=== PATIENT | male | born 1955 | race Caucasian/White ===

== ENCOUNTER 2017-06-22 18:18 | Inpatient (IN) ==
[2017-06-22] MEDS: SALINE FLUSH 10ml SYRINGE IVF PRN ×2 (19:22→23:05)
--- NOTE | 2017-06-22 19:22 | Emergency Department Report ---
Skin/Abscess/FB HPI - General Chief complaint: Skin/Abscess/Foreign Body <Zuly Messer Josette Padilla 06/22/17 19: 32> Stated complaint: rash all over,swollen hands,swollen eyes <Zuly Messer Randy 06/22/17 19:32> Time Seen by Provider: 06/22/17 18:21 <AydeZulyxiomara Padilla 06/22/17 19:32> Source: patient, family <PorfiriobookerjoeJessicaZulyxiomara Padilla 06/22/17 19:32> Mode of arrival: ambulatory <AydeZulyxiomara Padilla 06/22/17 19:32> Limitations: no limitations <PorfirioadalbertoZulyxiomara Padilla 06/22/17 19:32> - History of Present Illness HPI narrative: Pt presents with redness and swelling to chest, neck, head, back, and extremities. He reports a history of psoriasis for which he has been using a steroid cream for quite some time, when he noticed the initial redness to his chest and back in addition to his upper extremities he saw his PCP who started him on a 14 day course of Lamisil and prn Vistaril 10 days ago. He did not take his Vistaril today as it makes him tired but has been taking his Lamisil regularly. Tonight when his came home she noted increased swelling to his extremities and face, as well as color changes to his lower extremities to a more intense red and purple, she notified PCP who instructed pt to come to the ER <AydeZulyxiomara Padilla 06/22/17 19:32> MD complaint: rash, lesion, discoloration, other (psoriassis) <Ayde Zulyxiomara Padilla 06/22/17 19:32> Onset (ago): week(s) <AydeZulyxiomara Padilla 06/22/17 19:32> Location: head, chest, back, LUE, RUE, L hand, R hand, LLE, RLE, L foot, R foot <Zuly Messer 06/22/17 19:32> Severity: severe <Zuly Messer 06/22/17 19:32> Consistency: constant <Zuly Messer 06/22/17 19:32> Relieving factors: none <Zuly Messer 06/22/17 19:32> Exacerbating factors: none <Zuly Messer 06/22/17 19:32> Associated symptoms: itching (pt denies difficulty swallowing, SOA) < Zuly Messer 06/22/17 19:32> Treatments prior to arrival: corticosteroid, other (antifungal, Vistaril) < Zuly Messer 06/22/17 19:32> - Related Data Home Medications Medication Instructions Recorded Confirmed Acetaminophen 650 mg PO Q4-6HR PRN 06/22/17 06/22/17 Albuterol Sulfate [Proventil Hfa 1 puff INH Q4H PRN 06/22/17 06/22/17 90mcg] Budesonide/Formoterol Fumarate 2 puff INH BID 06/22/17 06/22/17 [Symbicort 160-4.5 Mcg Inhaler] Furosemide [Lasix] 20 mg PO DAILY 06/22/17 06/22/17 Multivitamin [One Daily] 1 each PO DAILY 06/22/17 06/22/17 Terbinafine Tab [LamISIL] 250 mg PO DAILY 06/22/17 06/22/17 Vitamin B Complex [Balanced B-100] 1 each PO DAILY 06/22/17 06/22/17 hydrOXYzine pamoate [Vistaril] 1 cap PO HS 06/22/17 06/22/17 <Zuly Messer 06/22/17 19:32> Allergies Allergy/AdvReac Type Severity Reaction Status Date / Time No Known Drug Allergies Allergy Unknown Verified 06/22/17 18:43 <Zuly Messer 06/22/17 19:32> Review of Systems All systems: reviewed and negative except as stated <Zuly Messer 11/03 19:32> Constitutional: Denies: fever, chills <Zuly Messer 06/22/17 19:32> ENT: Denies: ear pain, throat pain <Zuly Messer 06/22/17 19:32> Cardiovascular: Reports: edema. Denies: chest pain, dyspnea on exertion < Zuly Messer 06/22/17 19:32> Respiratory: Denies: cough, dyspnea <Zuly Messer 06/22/17 19:32> Gastrointestinal: Denies: abdominal pain, nausea, vomiting, diarrhea < Zuly Messer 06/22/17 19:32> Musculoskeletal: Reports: joint swelling, arthralgia, myalgia <Zuly Messer 06/22/17 19:32> Integumentary: Reports: change in hair, change in nails, change in pigmentation , changing lesions, erythema, lesions, pruritus, rash, swelling, wounds < Zuly Messer 06/22/17 19:32> Neurological: Denies: headache <AydeZuly Padilla 06/22/17 19:32> Psychiatric: Denies: anxiety, depression <AydeZuly Padilla 06/22/17 19:32> Endocrine: Denies: fatigue <AydeZuly Padilla 06/22/17 19:32> [facility] Patient Stated Medical History Chronic Obstructive Pulmonary Yes Disease (COPD) Other Yes: psoriasis <AydeZuly Padilla 06/22/17 19:32> - Social History Smoking status: Unknown if ever smoked <Zuly Messer 06/22/17 19:32> Physical Exam - Limitations Limitations: no limitations <Zuly Messer 06/22/17 19:32> - General General appearance: alert, in distress <Zuly Messer 06/22/17 19:32> - Normal Exams: Head:: Normocephalic without trauma (swelling to scalp) <MariejoeZuly Josette Padilla 06/22/17 19:32> Eyes:: Pupils are PERRLA w/ EOMI <AydeZuly Padilla 06/22/17 19:32> Neck:: Full range of motion, without adenopathy <MariejoeZuly Padilla 19:32> Chest/Respirations:: Clear all garrido, with good airflow, and symmetry bilaterally <AydeZuly Padilla 06/22/17 19:32> Cardiovascular:: Regular rate and rhythm, without murmur or gallop, Pulses 2+ all extremities <PorfiriobookerjoeZuly Josette Randy 06/22/17 19:32> Abdomen:: Bowel sounds positive, soft, non-tender, non-distended <Zuly Messer 06/22/17 19:32> Musculoskeletal:: No tenderness, or deformity noted, good range of motion, all extremities <Zuly Messer 06/22/17 19:32> Neurological:: Patient is alert, and oriented, cranial nerves, motor/sensory/ cerebellar, exams w/o gross deficits, to observation <Zuly Messer 11/03 19:32> Psychiatric:: Patient exhibits, appropriate attention, emotion and affect < Zuly Messer 06/22/17 19:32> - Expanded Skin Exam Type of lesion: Present: rash <Zuly Messer 06/22/17 19:32> Distribution: generalized, head, neck, thorax, chest, back, LUE, LLE, RUE, RLE <[facility] Facility[facility] glover 06/22/17 19:32> Description: Present: erythematous, swelling, macular, vesicular, confluent, urticarial <Zuly Messer 06/22/17 19:32> Course - Consultations Consultation #1: Dr. Ledezma ([facility]): So long as pt does not have Crescencio's Donis or TEN-like sx, can treat as normal. Pts are treated very similarly to burn patients. Treatment should consist of cyclosporin 100mg bid, triamcinolone 0.1mg ointment bid, vaseline for pruritus, and hydroxyzine or benadryl for pruritus. May consider adding systemic steroids, though this can cause worsening of his underlying psoriasis later (or cause a pustular psoriasis). Culture any skin sites that appear impetiginous, since staph/strep can trigger psoriatic symptoms. If pt appears to have a bacterial infection treat, since staph/strep can cause worsening of erythrodermic symptoms. Trend LFTs and EOs. <06/22/17 21:44> Time: 21:00 <06/22/17 21:44> Consultation #2: Dr Armstrong contacted for possible admission. Dr Armstrong prefers a Manager Functional be consulted to be sure pt does not need to be transferred as he reports not being familiar with Psoriatic Erythroderma <Zuly Messer 06/22/17 22:08> Time: 20:20 (Dr Armstrong) <Zuly Messer 06/22/17 22:08> Consultation #3: Spoke with Manager Functional Dr Moise who feels pt would be better served by a filament tester <Zuly Messer 06/22/17 22:08> Time: 20:40 <Zuly Messer 06/22/17 22:08> Vital Signs Temperature 98.8 F 06/22/17 18:18 Pulse Rate 99 06/22/17 18:18 Respiratory Rate 18 06/22/17 18:18 Blood Pressure 138/82 06/22/17 18:18 Pulse Oximetry 97 06/22/17 18:18 Temperature 98.8 F 06/22/17 18:18 Pulse Rate 90 06/22/17 20:20 Respiratory Rate 18 06/22/17 20:20 Blood Pressure 144/89 H 06/22/17 20:20 Pulse Oximetry 94 06/22/17 20:20 <Zuly Messer 06/22/17 19:32> Skin/Abscess/Foreign Body - MDM Narrative Medical decision making narrative: After assessment, pt presentation, and H&P Dr Owens brought in for additional diagnostics and consultation. 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 Diagnostics and treatment initiated based on current standards of care for PE. Pt provided option for admission vs discharge and home care after Dr Owens had discussed findings with pt PCP. Pt desires admission and Dr Armstrong notified who then wanted confirmation from rheumatology to be sure pt could be cared for adequately at [facility]. Manager Functional felt dermatology would be more appropriate. Dermatology consult followed by return call to Dr Armstrong per Dr Owens. Pt to be admitted observation. <Zuly Messer 06/22/17 22:08> - Differential Diagnosis Likely: abscess of skin or subcutaneous tissue, viral exanthem, allergic reaction to drug, cellulitis, eczema, contact dermatitis (psoriatic erythroderma ) <Zuly Messer 06/22/17 19:32> - Lab Data Attestation: I reviewed the patient's lab results. <Zuly Messer 06/22 22:08> Result diagrams: 06/22/17 19:16 06/22/17 19:16 <AydeZuly R - 06/22/17 19:32> Lab Results 06/22/17 06/22/17 Range/Units 19:16 19:16 WBC 11.3 H (4.5-11.0) T/MM3 RBC 4.57 (4.50-5.90) M/MM3 Hgb 14.1 (13.5-17.5) GM/DL Hct 42.1 (41-53) % MCV 92.1 (80-100) UM3 MCH 30.9 (26-34) UUG MCHC 33.5 (31-37) GM/DL RDW Std Deviation 49.5 (36.9-50.2) FL Plt Count 273 (130-400) T/MM3 MPV 8.8 L (9.4-12.4) UM3 Immature Gran % (Auto) 0.2 (0.0-0.5) % Neut % (Auto) 51.9 (33-66) % Lymph % (Auto) 11.0 L (23-45) % Titus % (Auto) 6.8 (0-9.0) % Eos % (Auto) 29.7 H (0-4) % Baso % (Auto) 0.4 (0-2) % Neut # (Auto) 5.9 (1.8-7.7) T/MM3 Lymph # (Auto) 1.2 (1-4.8) T/MM3 Titus # (Auto) 0.8 (0-0.8) T/MM3 Eos # (Auto) 3.4 H (0-0.5) T/MM3 Baso # (Auto) 0.0 (0-0.2) T/MM3 Abs Immat Gran (auto) 0.02 (0.00-0.03) T/MM3 Turbidity < 20 (0-20) Sodium 140 (134-144) MEQ/L Potassium 3.8 (3.6-5) MEQ/L Chloride 105 (98-107) MEQ/L Carbon Dioxide 28 (22-30) MEQ/L Anion Gap 7 (5-15) MEQ/L BUN 8.0 L (9-20) MG/DL Creatinine 0.8 (0.8-1.5) MG/DL GFR Calculation 99 BUN/Creatinine Ratio 10 (6-26) RATIO Glucose 95 (75-110) MG/DL Calculated Osmolality 267 (261-280) MOSM/KG Calcium 8.6 (8.4-10.2) MG/DL Total Bilirubin 0.20 (0.20-1.30) MG/DL Icterus Index < 2 (0-7) AST 26 (17-59) U/L ALT 46 (21-72) U/L Alkaline Phosphatase 51 (38-126) U/L B-Natriuretic Peptide 201 H (0-175) pg/mL Total Protein 6.1 L (6.3-8.2) G/DL Albumin 3.3 L (3.5-5.0) G/DL Globulin 2.8 (2.4-3.6) G/DL Albumin/Globulin Ratio 1.2 (1.1-2.2) RATIO Specimen Hemolysis < 15 (0-25) <Zuly Messer 06/22/17 22:08> - Radiology Data Attestation: I reviewed the patient's radiology results. (per Dr Owens) < Zuly Messer 06/22/17 22:08> Disposition Clinical Impression: Erythroderma, Psoriasis <Zuly Messer 06/22/17 22:08> Disposition: 02 To [facility] Acute Care <Zuly Messer 06/22/17 22:08> Condition: Improved <Zuly Messer 06/22/17 22:08> Instructions: <Zuly Messer 06/22/17 19:32> Prescriptions: No Action hydrOXYzine pamoate [Vistaril] 1 cap PO HS Terbinafine Tab [LamISIL] 250 mg PO DAILY Multivitamin [One Daily] 1 each PO DAILY Furosemide [Lasix] 20 mg PO DAILY Budesonide/Formoterol Fumarate [Symbicort 160-4.5 Mcg Inhaler] 2 puff INH BID Acetaminophen 650 mg PO Q4-6HR PRN PRN Reason: Pain Vitamin B Complex [Balanced B-100] 1 each PO DAILY Albuterol Sulfate [Proventil Hfa 90mcg] 1 puff INH Q4H PRN PRN Reason: Shortness Of Air/Wheezing <Zuly Messer 06/22/17 19: 32> Referrals: Alberto House DO [Family Provider] - <Zuly Messer 11/03 19:32> Forms: <Zuly Messer 06/22/17 19:32> Time of Disposition: 22:08 <Zuly Messer 06/22/17 22:08> - Seen By: midlevel and physician <Zuly Messer 06/22/17 22:08>
[2017-06-22] MEDS ORDERED: ONDANSETRON 4 MG/2 ML INJECTION IVP PRN (22:27)
[2017-06-22] MEDS ORDERED: PANTOPRAZOLE 40 MG INJECTION IVP SCH (22:27)
[2017-06-22] MEDS ORDERED: MORPHINE SULFATE 2mg INJECTION IVP PRN (22:27)
[2017-06-22] MEDS ORDERED: TRIAMCINOLONE 0.1% LOTION 60 ML BOTTLE TOP SCH (22:27)
[2017-06-22] MEDS ORDERED: DOCUSATE SODIUM 100 MG CAPSULE PO PRN (22:27)
[2017-06-22] MEDS: NS 1,000 ML IV SCH (23:04)
[2017-06-22] MEDS: DiphenhydrAMINE 50 MG/ML INJECTION IVP PRN (23:09)
[2017-06-23] MEDS: HYDROCODONE/APAP 5mg/325mg TABLET PO PRN ×3 (00:54→20:27)
--- NOTE | 2017-06-23 01:22 | History & Physical Report ---
History of Present Illness Date: 06/23/17 Chief complaint: skin rash HPI: This is a very pleasant 61 y/o male with a significant case of psoriasis. Over the past week his rash had worsened. His PCP discontinued his topical steroids and started an antifungal cream. Over the past 2 days the rash has remarkable worsened to include his extremities and face. The patient presents to the ED tonight and was appropriately diagnosed with Psoiratic Erythroderma. This is actually a fairly rare complication of psoriasis that can actually progress into either a Vargas Donis type injury or even a toxic nectortizing epidermolysis. The ED contacted Dermatology out of [place] (Dr. Su) and it was recommended to start a medium dose steroid cream and cyclosporin I wanted to ensure it was appropriate to keep this patient local given the rapidity of change in his skin. Review of Systems Review of systems: no headache, no change in vision, no fever, chills or sweatas, overal feels tired. significant puritis to his skin that has escalated recently. no chest pain, no cough, no heart palpitations, no abdomen pain, no nausea or vomiting, no diarrhea or change in bowel movements. no focal neuro complaints. This has never happened to this patient in the past. [facility] Patient Stated Medical History Chronic Obstructive Pulmonary Yes Disease (COPD) Other Yes: psoriasis Clinic Medical History Erythroderma (Acute Medical) Psoriasis (Acute Medical) Surgical History: none - Social History Smoking status: Former smoker Substance use type: does not use Alcohol intake frequency: does not drink Housing: house Household members: spouse, family, children Current occupational status: employed Current occupational exposures/hazards: No Does patient use chewing tobacco?: No Current residence: Apartment/Private Home Medications Home Medications Medication Instructions Recorded Confirmed Type Acetaminophen 650 mg PO Q4-6HR PRN 06/22/17 06/22/17 History Albuterol Sulfate [Proventil Hfa 1 puff INH Q4H PRN 06/22/17 06/22/17 History 90mcg] Budesonide/Formoterol Fumarate 2 puff INH BID 06/22/17 06/22/17 History [Symbicort 160-4.5 Mcg Inhaler] Furosemide [Lasix] 20 mg PO DAILY 06/22/17 06/22/17 History Multivitamin [One Daily] 1 each PO DAILY 06/22/17 06/22/17 History Terbinafine Tab [LamISIL] 250 mg PO DAILY 06/22/17 06/22/17 History Vitamin B Complex [Balanced B-100] 1 each PO DAILY 06/22/17 06/22/17 History hydrOXYzine pamoate [Vistaril] 1 cap PO HS 06/22/17 06/22/17 History Allergies Allergy/AdvReac Type Severity Reaction Status Date / Time No Known Drug Allergies Allergy Unknown Verified 06/22/17 18:43 Exam Vital Signs: Temperature 96.4 F L 06/22/17 22:28 Pulse Rate 90 06/22/17 22:28 Respiratory Rate 20 06/22/17 22:28 Blood Pressure 144/86 H 06/22/17 22:28 Pulse Oximetry 93 06/22/17 22:28 Telemetry Rhythm: Sinus Rhythm - Constitutional Present: moderate distress, well nourished, well developed, average body habitus , cooperative - Routine HEENT Exam Head: Present: normocephalic, atraumatic Eye: Present: EOMI, PERRL, conjunctivae pink. Absent: scleral injection ENT: Present: mucous membranes moist Comments: note that there are no mucosal lesions or scleral lesions present. This is based on my exam and more importantly on exam of the ED who could more easilysee mucous membranes. both pinna are swollen , erythematous, and tender to touch - Routine Neck Exam Present: supple, full ROM - Routine Respiratory Exam Present: CTA bilaterally. Absent: rales, wheezes - Routine Cardiovascular Exam Present: RRR, no murmur - Routine Abdominal Exam Present: soft, normoactive bowel sounds, non distended, non tender - Routine Extremities Exam Comments: integument examination demonstrates diffuse erytheatous regions of the face, back arms, hands, and feet and leg. warm to touch, marleni, - Routine Back/Spine/Pelvis Exam Back/Spine: Present: full ROM - Routine Neurological Exam Present: alert, oriented X3 Results - Labs CBC & Chem 7: 06/22/17 19:16 06/22/17 19:16 Labs: reviwed and appreciated Microbiology Results: Microbiology 06/22/17 22:13 Ankle, Right Superficial Wound Culture - Preliminary Culture Initiated - Results Pending Assessment and Plan (1) Erythroderma Current visit: Yes Status: Acute (2) Psoriasis Current visit: Yes Status: Acute (3) COPD (chronic obstructive pulmonary disease) Current visit: Yes Status: Acute Assessment and Plan: 1. Careful discussion with Dermatology ocurred through the ED. Recommended cyclosporin which was calculated to 100mg po BID. Dr. Su out of [facility] was kind enough to provide insight. (# in ED note). It was recommended to check LFT with cyclosporin and to monitor eosinophil count If eos increasing would herald worsening of the disease process. there is debate regarding systemic steroids but Derm r/c not to start just yet. There is no evidence of Toxic necrotizing epidermolysis. There is no evidence of mucous membrane involvement. Based on the reassurances of dermatology and otherwise stable nature of the patient otherwise keeping local was felt to be reasonable for now. 2. psoriasis will be followed and included in the discussion above 3 COPD chronic POA: currently not exacerbated, continued inhaled steroids and albuterol prn Resuscitation Status: Full Code - Time spent with patient Time with patient PN: 35 minutes Hospital Course Summary Disclaimer: The visit summary below is not to be considered part of the above Progress Note.
[2017-06-23] MEDS ORDERED: ALBUTEROL 2.5mg/3ml (0.083%) NEB AEROSOL PRN (06:41)
[2017-06-23] MEDS ORDERED: INHALER ASSIST DEVICE (Optichamber) MC ONE (06:45)
[2017-06-23] MEDS: PANTOPRAZOLE 40 MG INJECTION IVP SCH ×2 (08:45→20:27)
[2017-06-23] MEDS: TRIAMCINOLONE 0.1% LOTION 60 ML BOTTLE TOP SCH ×2 (08:48→20:28)
[2017-06-23] MEDS: NS 1,000 ML IV SCH ×2 (09:48→20:26)
--- NOTE | 2017-06-23 11:45 | Progress Note ---
- Date 06/23/17 Subjective: This is a very pleasant 61 y/o male with a significant case of psoriasis. Over the past week his rash had worsened. His PCP discontinued his topical steroids and started an antifungal cream. Over the past 2 days the rash has remarkably worsened to include his extremities and face. The patient presents to the ED tonight and was appropriately diagnosed with Psoriatic Erythroderma. This is actually a fairly rare complication of psoriasis that can actually progress into either a Vargas Donis type injury or even a toxic necrotizing epidermolysis. The ED contacted Dermatology out of [place] (Dr. Su) and it was recommended to start a medium dose steroid cream and cyclosporin. I wanted to ensure it was appropriate to keep this patient local given the rapidity of change in his skin. Today, he continues to have pretty much full body erythema. He is having edema which is expected. His labs are relatively stable as is his vital signs. He denies SOA, Palp, CP, abd pain. He has not had much urine output but he is third spacing due to vascular dilatation from the erythroderma. Objective Vital signs: Temperature 98.8 F 06/23/17 07:58 Pulse Rate 92 06/23/17 09:46 Respiratory Rate 12 06/23/17 09:46 Blood Pressure 143/78 H 06/23/17 07:58 Pulse Oximetry 93 06/23/17 09:46 Height/Weight/BMI: Height 1.6 m Weight 78.1 kg Comments: Gen: alert and oriented. NAD Skin: Hot and erythematous, patchy slightly raised areas on the LE. There is a crusty scab on the left lateral malleolus HEENT: NC/AT PERRL, EOMI, Sclera, lids and conjunctiva wnl. MMM. OP clear. Neck: No JVD, Carotids 2+ without bruits Lungs: clear. No rales, rhonchi or wheezes CV: regular. No murmur, rub or gallop Abd: soft. +BS. NT/ND MS: 2+ generalized edema. Good strength and ROM Neuro: No focal deficits Results - Labs CBC & Chem 7: 06/22/17 19:16 06/23/17 06:37 Microbiology Results: Microbiology 06/22/17 22:13 Ankle, Right Gram Stain - Final 06/22/17 22:13 Ankle, Right Superficial Wound Culture - Preliminary Group C Streptococcus Assessment and Plan (1) Erythroderma Current visit: Yes Status: Acute (2) Psoriasis Current visit: Yes Status: Acute (3) COPD (chronic obstructive pulmonary disease) Current visit: Yes Status: Acute Assessment and Plan: 1. Erythrodermic psoriasis -Careful discussion with Dermatology (Dr. Su [facility])occurred through the ED. -Recommended cyclosporin 100mg po BID. -It was recommended to check LFT with cyclosporin and to monitor eosinophil count ---If eos increasing would herald worsening of the disease process. -Derm did not recommend starting systemic steroids at this time. -There is no evidence of Toxic necrotizing epidermolysis. -here is no evidence of mucous membrane involvement. -Will transfer should pt become worse or should pt decide he would like to ( family wants him transferred, he wants to stay for now) -Wound cx on lateral malleolus +strep, Will start rocephin 2. Psoriasis -will be followed and included in the discussion above 3 COPD -currently not exacerbated -continued inhaled steroids and albuterol prn 4. Prophylaxis Lovenox and PPI Hospital Course Summary Disclaimer: The visit summary below is not to be considered part of the above Progress Note.
[2017-06-23] MEDS ORDERED: CEFTRIAXONE 1 G in NS 100 ML IV SCH (12:00)
[2017-06-23] MEDS: ENOXAPARIN 40 MG/0.4 ML INJECTION SQ SCH (12:22)
[2017-06-23] MEDS: DiphenhydrAMINE 50 MG/ML INJECTION IVP PRN (20:26)
[2017-06-24] MEDS: DiphenhydrAMINE 50 MG/ML INJECTION IVP PRN ×2 (02:20→08:15)
[2017-06-24] MEDS: NS 1,000 ML IV SCH (06:13)
[2017-06-24 07:14] VITALS: RESP 18
[2017-06-24 08:07] VITALS: BP 141/89; PULSE 78; TEMP 96.4; O2SAT 94
[2017-06-24] MEDS ORDERED: PNEUMOCOCCAL 13 VACCINE 0.5ml INJECTION IM ONE (09:00)
[2017-06-24] MEDS ORDERED: PNEUMOCOCCAL VAC ADMIN CHARGE INJ ONE (09:20)
[2017-06-24] MEDS: ENOXAPARIN 40 MG/0.4 ML INJECTION SQ SCH (09:20)
[2017-06-24] MEDS: HYDROCODONE/APAP 5mg/325mg TABLET PO PRN (09:26)
--- NOTE | 2017-06-24 09:36 | Progress Note ---
- Date 06/24/17 Subjective: This is a very pleasant 61 y/o male with a significant case of psoriasis. Over the past week his rash had worsened. His PCP discontinued his topical steroids and started an antifungal cream. Over the past 2 days the rash has remarkably worsened to include his extremities and face. The patient presents to the ED tonight and was appropriately diagnosed with Psoriatic Erythroderma. This is actually a fairly rare complication of psoriasis that can actually progress into either a Vargas Donis type injury or even a toxic necrotizing epidermolysis. The ED contacted Dermatology out of [place] (Dr. Su) and it was recommended to start a medium dose steroid cream and cyclosporin. I wanted to ensure it was appropriate to keep this patient local given the rapidity of change in his skin. Today, he continues to have very dry skin that is pruritic. He is less red today. I do think we are making progress. He is edematous and his BPs are stable so we can probably decrease the IVF. He in encouraged to drink plenty of water. His labs are relatively stable as are his vital signs. He denies SOA, Palp, CP, abd pain. He is making urine. He is tolerating the medications. Objective Vital signs: Temperature 96.4 F L 06/24/17 07:00 Pulse Rate 78 06/24/17 07:00 Respiratory Rate 18 06/24/17 07:13 Blood Pressure 141/89 H 06/24/17 07:00 Pulse Oximetry 94 06/24/17 07:00 Height/Weight/BMI: Height 1.6 m Weight 78.9 kg Comments: Gen: alert and oriented. NAD Skin: Hot and erythematous, patchy slightly raised areas on the LE that are slightly improved from yesterday. There is a crusty scab on the bilateral lateral malleolus HEENT: NC/AT PERRL, EOMI, Sclera, lids and conjunctiva wnl. MMM. OP clear. Neck: No JVD, Carotids 2+ without bruits Lungs: clear. No rales, rhonchi or wheezes CV: regular. No murmur, rub or gallop Abd: soft. +BS. NT/ND MS: 2+ generalized edema. Good strength and ROM Neuro: No focal deficits Results - Labs CBC & Chem 7: 06/24/17 06:20 06/24/17 06:20 Microbiology Results: Microbiology 06/22/17 22:13 Ankle, Right Gram Stain - Final 06/22/17 22:13 Ankle, Right Superficial Wound Culture - Preliminary Group C Streptococcus Assessment and Plan (1) Erythroderma Current visit: Yes Status: Acute (2) Psoriasis Current visit: Yes Status: Acute (3) COPD (chronic obstructive pulmonary disease) Current visit: Yes Status: Acute Assessment and Plan: 1. Erythrodermic psoriasis -Careful discussion with Dermatology (Dr. Su [facility])occurred through the ED. -Recommended cyclosporin 100mg po BID. -It was recommended to check LFT with cyclosporin and to monitor eosinophil count ---If eos increasing would herald worsening of the disease process. EOS checked today elevated at 30% -Derm did not recommend starting systemic steroids at this time. -There is no evidence of Toxic necrotizing epidermolysis. -here is no evidence of mucous membrane involvement. -Pt requests transfer to [place] where he well have the benefit of a substation operator helper generation which is certainly reasonable. This was offered yesterday but pt declined. (family wanted him transferred, he wanted to stay) -Wound cx on lateral malleolus +strep, Will start rocephin 2. Psoriasis -will be followed and included in the discussion above 3 COPD -currently not exacerbated -continued inhaled steroids and albuterol prn 4. Prophylaxis Lovenox and PPI Hospital Course Summary Disclaimer: The visit summary below is not to be considered part of the above Progress Note.
--- NOTE | 2017-06-24 09:44 | Discharge Summary ---
Discharge Information Date of admission: 06/22/17 22:03 Anticipated date of discharge: 06/24/17 Attending Physician: Ketty Gaines MD Primary care physician: Alberto House DO Consults: 06/24/17 09:02 Case Management Consult [CONS] Routine Reason For Exam: [facility] today, 06/24 - Discharge Diagnosis (1) Erythroderma Status: Acute (2) Psoriasis Status: Chronic (3) COPD (chronic obstructive pulmonary disease) Status: Chronic Erythrodermic Psoriasis +strep from left lateral malleolus wound COPD - Procedures Procedures: None - Laboratory Labs: 06/24/17 06:20 06/24/17 06:20 Abnormal Labs 06/22/17 06/22/17 06/23/17 19:16 19:16 06:37 WBC 11.3 H RBC Hgb Hct RDW Std Deviation MPV 8.8 L Lymph % (Auto) 11.0 L Eos % (Auto) 29.7 H Neut # (Auto) [place] # (Auto) Eos # (Auto) 3.4 H Lymphocytes % (Manual) Eosinophils % (Manual) Eosinophils # (Manual) Chloride 109 H BUN 8.0 L 7.0 L Creatinine 0.7 L Glucose 113 H Calcium 8.0 L AST B-Natriuretic Peptide 201 H Total Protein 6.1 L Albumin 3.3 L Albumin/Globulin Ratio 06/23/17 06/24/17 06/24/17 12:25 06:20 06:20 WBC 14.3 H RBC 4.22 L 4.23 L Hgb 13.0 L 13.2 L Hct 39.0 L 39.4 L RDW Std Deviation 50.4 H 50.4 H MPV 8.7 L 8.7 L Lymph % (Auto) 9.4 L Eos % (Auto) 23.9 H Neut # (Auto) 8.4 H [place] # (Auto) 1.1 H Eos # (Auto) 3.4 H Lymphocytes % (Manual) 14.0 L Eosinophils % (Manual) 30.0 H Eosinophils # (Manual) 3.0 H Chloride 110 H BUN 5.0 L Creatinine 0.7 L Glucose Calcium 8.0 L AST 12 L D B-Natriuretic Peptide Total Protein 5.8 L Albumin 2.9 L Albumin/Globulin Ratio 1.0 L - Microbiology Microbiology 06/22/17 22:13 Ankle, Right Gram Stain - Final 06/22/17 22:13 Ankle, Right Superficial Wound Culture - Preliminary Group C Streptococcus History of Present Illness HPI: This is a very pleasant 61 y/o male with a significant case of psoriasis. Over the past week his rash had worsened. His PCP discontinued his topical steroids and started an antifungal cream. Over the past 2 days the rash has remarkable worsened to include his extremities and face. The patient presents to the ED tonight and was appropriately diagnosed with Psoiratic Erythroderma. This is actually a fairly rare complication of psoriasis that can actually progress into either a Vargas Donis type injury or even a toxic nectortizing epidermolysis. The ED contacted Dermatology out of [place] (Dr. Su) and it was recommended to start a medium dose steroid cream and cyclosporin I wanted to ensure it was appropriate to keep this patient local given the rapidity of change in his skin. Hospital Course This is a general summary of the patient's hospital course. For more details refer to the complete medical record. Mr. Rey was admitted with a diagnosis of her retro dramatic psoriasis. A consult was made with dermatology while the patient was in the emergency room. The supervisor public message service recommended cyclosporine and topical steroids. The patient was offered transfer to a facility with an active dermatology consult and patient declined. He was started on IV fluids and the appropriate medications. He was seen the next day again offering transfer to [place] and the patient again declined. On the 3rd day he was doing better. He is less erythematous. He continues to be rather edematous. Vital signs were stable without tachycardia or hypotension. After further discussion with the patient he has decided he would like to transfer to [place]. Arrangements were then subsequently made for him to transfer. He was in stable condition at the time of transfer. Time spent with patient: discharge greater than 30 minutes DVT Prophylaxis: Lovenox GI Prophylaxis: Protonix Discharge Plan - Med Rec/Dispo Referrals/Follow Up: Alberto House DO [Family Provider] - (follow up with Dr. House after discharge from Hospital) Prescriptions: No Action hydrOXYzine pamoate [Vistaril] 1 cap PO HS Terbinafine Tab [LamISIL] 250 mg PO DAILY Multivitamin [One Daily] 1 each PO DAILY Furosemide [Lasix] 20 mg PO DAILY Budesonide/Formoterol Fumarate [Symbicort 160-4.5 Mcg Inhaler] 2 puff INH BID Acetaminophen 650 mg PO Q4-6HR PRN PRN Reason: Pain Vitamin B Complex [Balanced B-100] 1 each PO DAILY Albuterol Sulfate [Proventil Hfa 90mcg] 1 puff INH Q4H PRN PRN Reason: Shortness Of Air/Wheezing - Disposition 02 To [facility] Acute Care - Dismissal Complete Discharge Instructions are:: Complete
--- NOTE | 2017-06-24 09:46 | XRay Report ---
INDICATION: ARDS PROCEDURE: CHEST 2-VIEWS UPRIGHT (PA & LAT) Encounter: Initial COMPARISON: June 25, 2015 FINDINGS: The lungs are clear without evidence of focal abnormal airspace opacity. There is no pleural effusion or pneumothorax. Heart size and pulmonary vascularity are normal. Hiatal hernia. IMPRESSION: No acute cardiopulmonary disease. .
[2017-06-24] MEDS: PANTOPRAZOLE 40 MG INJECTION IVP SCH (10:00)
[2017-06-24] MEDS: TRIAMCINOLONE 0.1% LOTION 60 ML BOTTLE TOP SCH (10:28)
== END 2017-06-24 11:20 | disposition short-term general hospital (02) | DRG 596 ==
LOC: ED 18:18 → MED 22:03
PROVIDERS: ADMIT Emergency Medicine; ATTEND Internal Medicine Cardiovascular Disease